=== PATIENT | male | born 1970 | race Caucasian/White ===

== ENCOUNTER 2021-03-28 09:39 | Emergency (ER) | payer BC, SELFPAY ==
[2021-03-28] VITALS (8 sets, daily range): BP systolic 140–161; BP diastolic 65–88; PULSE 64–86; RESP 20; TEMP 36.2; O2SAT 93–100
--- NOTE | 2021-03-28 09:45 | DI.CT_ITS ---
Exam(s) CT ABDOMEN PELVIS W EXAM: CT ABDOMEN PELVIS W CLINICAL HISTORY: flank pain, right,a cute in onset TECHNIQUE: Imaging Protocol: Axial computed tomography images with coronal and sagittal reformatted images were created and reviewed CONTRAST MATERIAL: Intravenous: Omnipaque 350 Contrast volume:100 mL Oral: No COMPARISON: No exams were available for comparison FINDINGS: ABDOMEN: Lung Bases: Normal where visualized. Small hiatal hernia. Liver: Normal density. Simple cyst in the left lobe of the liver measuring 6 mm. No follow-up recomm ended. Portal, Superior Mesenteric, and Splenic Veins: Unremarkable. Gallbladder and Biliary Tract: No radiodense calculus or dilation. Pancreas: Normal density, no abnormal calcifications or inflammatory process. Spleen: Normal. Adrenals: No masses seen. Kidneys: Normal size, contour and axis. There is a 3 mm obstructing stone at the right UVJ causing mi ld hydronephrosis. No masses seen. Abdominal Aorta: Abdominal portion non-dilated. Mild atherosclerosis. Bowel: No obstruction or bowel wall thickening. Appendix is unremarkable. Diverticulosis of the desce nding and sigmoid colon, but no evidence of acute diverticulitis. Peritoneal Cavity: No ascites, collection or mesenteric inflammatory response. No free air. Lymph Nodes: Within normal limits. Bones: Within normal limits for the patient's age. Soft Tissues: Unremarkable. PELVIS: Bladder: Symmetric distention, no gross wall thickening. Reproductive Organs: Unremarkable as visualized. Lymph Nodes: Within normal limits. Bones: Within normal limits for the patient's age. IMPRESSION: 1. 3 mm right UVJ stone causing mild right hydronephrosis. 2. Results of this exam have been verbally communicated with provider. RADIATION DOSE DELIVERED: 738.6mGy.cm Total DLP DATA REPOSITORY: All CT scans at this facility are submitted to the National Radiology Data Registry (NRDR) Dose Index Registry (DIR) with the [employer] ([employer]). RADIATION OPTIMIZATION: All CT scans at this facility use at least one of these dose optimization te chniques: automated exposure control; mA and/or kV adjustment per patient size (includes targeted exa ms where dose is matched to clinical indication); or iterative reconstruction.
[2021-03-28] MEDS: Ondansetron O.D.T. 4 MG TABEF PO (10:07)
[2021-03-28] MEDS: MORPHine 10 MG/ML VIAL 5 MG IVP (10:07)
[2021-03-28] MEDS: ACETAMINOPHEN 1,000 MG/100 ML BTL 400 MG IVPB (10:08)
[2021-03-28] MEDS: Normal Saline 1,000 ML 1000 ML IV (10:13)
--- NOTE | 2021-03-28 10:19 | ED.GENADUL_ITS ---
Discharge Plan Disposition Patient Disposition: HOME Condition: Good Discharge Details Clinical Impression: Ureterolithiasis Primary Care Provider: Dinorah,Local ED Provider: Rylee Man Home Meds and New Rx's Prescriptions: New tamsulosin [Flomax] 0.4 mg capsule 0.4 mg PO DAILY Qty: 5 RF: 0 morphine 15 mg tablet 15 mg PO Q6H PRNQty: 10 RF: 0 ondansetron HCl [Zofran] 4 mg tablet 4 mg PO Q8H PRNQty: 10 RF: 0 No Action Vitamin D2 1,000 unit Capsule 10 mcg PO DAILY RF: 0 Discharge Instructions Additional Instructions: Take ibuprofen 600 mg every 8 hours with food as needed for pain, stay on top of your pain control Take Tylenol 650 mg every 4-6 hours Take morphine for pain uncontrolled, this medication will make you constipated and is addictive Strain your urine when you urinate and take Flomax as Please return with fever, chills, or with any new or worsening complaints Have listed urologist, please call to schedule outpatient follow-up on Wednesday Referrals: Lewis Del Angel MD [ [facility] ST[facility]FF [facility]YSICIAN] - Discharge Data Discharge Date/Time-TO BE ENTERED AT DEPARTURE: 03/28/21 14:00 Medical Decision Making CTA shows UVJ stone right, patient pain is symptomatically improved, given a strainer and Flomax for home We will follow up with Dr. Del Angel No evidence of secondary infection Afebrile and nontoxic Discharged home in stable condition with stable vitals, did supply patient with a small amount of morphine for pain Encouraged to take ibuprofen every 6 to 8 to 8 hours and Tylenol every 4-6 hours Given antiemetics Return precautions discussed and patient expressed understanding Medical Records Medical records reviewed: Yes I reviewed the patient's medical records. Lab Data Lab results reviewed: Yes I reviewed the patient's lab results. HPI General Mode of arrival: ambulatory . Date/Time Provider Initiated Documentation: 03/28/21 09:52 . Limitations to Documentation: no limitations . Information obtained by: patient . HPI Narrative: This 50-year-old male pres ents with acute onset of flank pain this morning. Right-sided flank pain. Nausea, vomiting, and difficulty urinating. Denies hematuria. Denies history of stones. Denies known history of aneurysmal dilation of his aorta. Denies any chest pain or shortness of breath. Denies any falls or injuries. Denies any exacerbating or alleviating factors. Describes the pain as sharp. Related Data Home Medications Medication Instructions Recorded Confirmed ergocalciferol (vitamin D2) 10 mcg PO DAILY 03/28/21 03/28/21 [Vitamin D2] morphine 15 mg PO Q6H PRN #10 tab 03/28/21 ondansetron HCl [Zofran] 4 mg PO Q8H PRN #10 tab 03/28/21 tamsulosin [Flomax] 0.4 mg PO DAILY #5 cap 03/28/21 Previous Rx's Medication Instructions Recorded morphine 15 mg PO Q6H PRN #10 tab 03/28/21 ondansetron HCl [Zofran] 4 mg PO Q8H PRN #10 tab 03/28/21 tamsulosin [Flomax] 0.4 mg PO DAILY #5 cap 03/28/21 Allergies Allergy/AdvReac Type Severity Reaction Status Date / Time No Known Allergies Allergy Unverified 03/28/21 09:50 General Stated Complaint: FlankPain ROSEANNA: 3 Review of Systems All systems reviewed & are unremarkable except as noted in HPI and below PFSH Social History Smoking/Tobacco Use Status: Never Smoking risk assessment performed?: Yes Alcohol Intake: current Alcohol Intake frequency: a few times a month Substance use type: does not use Details: social ETOH use, had a few drinks last evening Do you feel safe at home: Yes Do you feel safe in your relationship?: Yes Exam Const General: acute distress Eyes Sclera: sclerae normal Resp Effort & Inspection: normal respiratory effort Cardio Rate: regular rate GI Inspection: normal to inspection Other: Right CVA tenderness no abdominal bruit or pulsatile mass Skin General skin exam: no rashes or lesions noted Neuro General: patient alert and patient oriented x3 Extrem Other: Distal pulses intact Course Vital Signs Vital signs: Vital Signs Temperature 36.2 C L 03/28/21 09:48 Pulse 69 03/28/21 09:48 Respiratory Rate 20 03/28/21 09:48 Blood Pressure 161/80 H 03/28/21 09:48 Pulse Oximetry 99 03/28/21 09:48 Temperature 36.2 C L 03/28/21 09:48 Temperature Source Skin 03/28/21 09:48 Pulse 69 03/28/21 09:48 Respiratory Rate 20 03/28/21 09:48 Respiratory Effort Non-Labored 03/28/21 09:52 Blood Pressure 161/80 H 03/28/21 09:48 Blood Pressure Position Sitting 03/28/21 09:48 Pulse Oximetry 99 03/28/21 09:48 Oxygen Delivery Method Room Air 03/28/21 09:48 Oxygen Flow Rate 0 03/28/21 09:48 Pain Level 9 03/28/21 10:08
[2021-03-28] MEDS: HYDROmorphone 2 MG/ML VIAL 1 MG IVP ×2 (11:19→12:17)
[2021-03-28] MEDS: Prochlorperazine 10 MG/2 ML VIAL IVP (11:19)
[2021-03-28] MEDS: Omnipaque 350 MG/ML 100 ML BTL IJ (11:19)
[2021-03-28] MEDS: Ketorolac 15 MG/ML VIAL IVP (12:23)
== END 2021-03-28 14:00 | disposition home or self-care (01) ==
PROVIDERS: Emergency Provider Physician Assistant
DX: N20.1 Calculus of ureter (principal)
CPT/HCPCS: 80053; 83690; 96361; 96374; 96375; 96376; 99285; 74177; 81003; 81015; 85025; 99284; J0131; J0780; J1885; J2270; J3490